=== PATIENT | male | born 1995 | race Two or more races ===

== ENCOUNTER 2019-02-27 04:32 | Emergency (ER) | payer SELFPAY ==
[~2019-02-27] VITALS: Ht 172.7 cm; Wt 95.3 kg
[2019-02-27 04:52] VITALS: BP 127/92
== END 2019-02-27 05:10 ==
LOC: ER 04:36
DX: Z02.89 Encounter for other administrative examinations (principal); Z53.21 Procedure and treatment not carried out due to patient leaving prior to being seen by health care provider